=== PATIENT | female | born 1985 | race Caucasian/White ===

== ENCOUNTER → 2021-03-28 | Outpatient (CLI) | payer SELFPAY ==
[~2021-03-28] MED LIST: OXYACE5T PO; Verotin-Gr Cap1 EACH PO
== END | disposition home or self-care (01) ==
LOC: LAB SHORT 08:29
DX: R39.9 Unspecified symptoms and signs involving the genitourinary system (principal)
CPT/HCPCS: 87086

== ENCOUNTER → 2021-07-19 | Outpatient (CLI) | payer BC | END | disposition home or self-care (01) | LOC: LAB SHORT 15:28 | DX: Z76.89 Persons encountering health services in other specified circumstances (principal) | CPT/HCPCS: 36415; 86317 ==

== ENCOUNTER → 2021-09-17 | Outpatient (CLI) | payer BC ==
[2021-09-24 08:09] LABS: HPV 16 Negative (Negative); HPV 18 Negative (Negative); HPV OTHER HR TYPES Negative (Negative)
== END | disposition home or self-care (01) ==
LOC: LAB SHORT 17:06 → LAB 17:06
PROVIDERS: Obstetrics & Gynecology
DX: Z12.4 Encounter for screening for malignant neoplasm of cervix (principal)
CPT/HCPCS: 87624; G0123

== ENCOUNTER 2023-02-20 01:00 | Day surgery (SDC) | payer BC ==
[2023-02-20 14:33] VITALS: BP 118/68
[2023-02-20] MEDS ORDERED: SPIRONOLACTONE25 MG PO (14:53)
[2023-02-20] MEDS ORDERED: ZOLPIDEM TARTRA10 MG PO (14:53)
[2023-02-20] MEDS ORDERED: ZOLOFT10013 PO (14:54)
== END 2023-02-20 15:39 | disposition home or self-care (01) ==
LOC: ATC 01:00
DX: D50.9 Iron deficiency anemia, unspecified (principal); F32.A Depression, unspecified
CPT/HCPCS: J2916

== ENCOUNTER 2023-03-13 01:44 | Day surgery (SDC) | payer BC ==
[~2023-03-13 01:44] MED LIST changes: +SPIRONOLACTONE25 MG PO; +ZOLOFT10013 PO; +ZOLPIDEM TARTRA10 MG PO
[2023-03-13 15:10] VITALS: BP 104/60
== END 2023-03-13 16:11 | disposition home or self-care (01) ==
LOC: ATC 01:44
DX: D50.9 Iron deficiency anemia, unspecified (principal)
CPT/HCPCS: 96365; J2916

== ENCOUNTER 2023-03-20 03:42 | Day surgery (SDC) | payer BC ==
[2023-03-20 14:02] VITALS: BP 100/64
== END 2023-03-20 15:03 | disposition home or self-care (01) ==
LOC: ATC 03:42
DX: D50.9 Iron deficiency anemia, unspecified (principal)
CPT/HCPCS: 96365; J2916